=== PATIENT | male | born 1990 | race African-American/Black ===

== ENCOUNTER 2016-05-24 15:29 | Emergency (ER) | payer OTHER ==
[~2016-05-24] VITALS: Ht 167.6 cm; Wt 87.5 kg
[2016-05-24 16:11] LABS: EOSINOPHIL (%) 0.3 % (0-5); HEMATOCRIT 38.1 % (38.0-50.0); IMMATURE GRANULOCYTE (%) 0.3 % (0.0-0.7); IMMATURE GRANULOCYTE COUNT 0.3 K/uL; LYMPHOCYTE COUNT 1.5 K/uL (1.0-2.8); MCH 29.1 PG (29.0-34.0); MCHC 34.9 G/DL (30.0-36.0); MCV 83.4 FL (86-99); MEAN PLAT.VOLUME 11.1 uM^3 (9.0-12.4); MONOCYTE (%) 7.6 % (3-12); MONOCYTE COUNT 0.9 K/uL (0-0.8); NEUTROPHIL (%) 78.8 % (45-76); NEUTROPHIL COUNT 9.2 K/uL (1.8-6.4); PLATELET COUNT 303 K/uL (156-360); RBC DIS.WIDTH-CV 11.2 % (11.8-14.6); RBC DIS.WIDTH-SD 33.6 % (39-53); RED BLOOD COUNT 4.57 M/uL (4.00-5.50); WHITE BLOOD COUNT 11.7 K/uL (4.1-10.2)
[2016-05-24 16:19] LABS: ADD MIUA? YES; BILIRUBIN NEGATIVE; BLOOD LARGE; COLOR YELLOW ((YELLOW)); GLUCOSE (STRIP) NEGATIVE; KETONES NEGATIVE; LEUKOCYTES NEGATIVE; NITRITE NEGATIVE; PROTEIN (STRIP) NEGATIVE; SPECIFIC GRAVITY 1.012 (1.000-1.030); UROBILINOGEN 0.2 MG/DL (0.2-1.0)
[2016-05-24 16:20] LABS: CHLORIDE 99 mEq/L (99-109); POTASSIUM 4.2 mEq/L (3.7-5.4); SODIUM 139 mEq/L (136-147)
[2016-05-24 16:22] LABS: GLUCOSE 103 mg/dL (70-99)
[2016-05-24 16:24] LABS: ANION GAP 15 MEQ/L (2-14); TOTAL BILIRUBIN 0.6 mg/dL (0.0-1.0)
[2016-05-24 16:26] LABS: ALKALINE PHOSPHATASE 58 IU/L (3-129); GFR ESTIMATE (CALCULATED) > 59 mL/min/
[2016-05-24 16:27] LABS: UREA NITROGEN (BUN) 14 mg/dL (9-23)
[2016-05-24 17:01] LABS: BACTERIA RARE /HPF; CALCIUM OXALATE CRYSTALS 4+ /HPF; EPITHELIAL CELLS NONE SEEN /HPF; MUCUS NONE SEEN /LPF; RED BLOOD CELLS TNTC /HPF (0-5); WHITE BLOOD CELLS NONE SEEN /HPF (0-5)
[2016-05-24 22:20] VITALS: BP 149/86
== END 2016-05-24 22:20 | disposition short-term general hospital (02) ==
LOC: EME 15:29
PROVIDERS: Emergency Medicine
DX: N23 Unspecified renal colic (principal); N13.30 Unspecified hydronephrosis; R31.0 Gross hematuria
CPT/HCPCS: 74176; 80053; 81003; 85025; 99281; 99285; J0360; J1170; J2270; J2405; J7030; J7050